=== PATIENT | male | born 1935 | race Caucasian/White ===

== ENCOUNTER 2016-12-31 10:50 | Emergency (ER) | payer MEDICARE ==
[2016-12-31 11:22] VITALS: BP 164/84
--- NOTE | 2016-12-31 12:01 | EDM.PDOC ---
ED HPI GENERAL MEDICAL PROBLEM - General Chief Complaint: Bite:Animal, Insect Stated Complaint: THINKS HAS [place] DISEASE Time Seen by Provider: 12/31/16 11:50 Source of Information: Reports: Patient History Limitations: Reports: No Limitations - History of Present Illness INITIAL COMMENTS - FREE TEXT/NARRATIVE: This 81 yo male patient reports to the ED with a tick bite to his right posterior thigh. The patient reports he has noticed increased redness to the area over the past 5 days, but denies any neurological symptoms at this time. The patient does not see a primary care provider and is not interested in seeing another provider. Onset: Gradual Onset Date: 12/26/16 Duration: Constant, Improving Quality: Reports: Dull Severity: Mild Improves with: Reports: None Worsens with: Reports: None Associated Symptoms: Reports: No Other Symptoms - Related Data Allergies Allergy/AdvReac Type Severity Reaction Status Date / Time No Known Allergies Allergy Verified 12/31/16 11:00 Home Meds: Home Meds . [No Known Home Meds] 12/31/16 [History] Past Medical History HEENT History: Reports: Hard of Hearing Gastrointestinal History: Reports: Hepatitis - Past Surgical History HEENT Surgical History: Reports: Other (See Below) Other HEENT Surgeries/Procedures: polyp removed from nose Social & Family History - Tobacco Use Smoking Status *Q: Never Smoker Second Hand Smoke Exposure: Yes - Caffeine Use Caffeine Use: Reports: Coffee - Recreational Drug Use Recreational Drug Use: No ED ROS GENERAL - Review of Systems Review Of Systems: ROS reveals no pertinent complaints other than HPI. ED EXAM, ANIMAL BITE - Physical Exam Exam: See Below Exam Limited By: No Limitations General Appearance: Alert, WD/WN, No Apparent Distress Eye Exam: Bilateral Eye: EOMI, Normal Inspection, PERRL Ears: Normal External Exam, Normal Canal, Hearing Grossly Normal, Normal TMs Nose: Normal Inspection, Normal Mucosa, No Blood Throat/Mouth: Normal Inspection, Normal Lips, Normal Teeth, Normal Gums, Normal Oropharynx, Normal Voice, No Airway Compromise Head: Atraumatic, Normocephalic Neck: Normal Inspection, Supple, Non-Tender, Full Range of Motion Respiratory/Chest: No Respiratory Distress, Lungs Clear, Normal Breath Sounds, No Accessory Muscle Use, Chest Non-Tender Cardiovascular: Normal Peripheral Pulses, Regular Rate, Rhythm, No Edema, No Gallop, No JVD, No Murmur, No Rub GI/Abdominal: Normal Bowel Sounds, Soft, Non-Tender, No Organomegaly, No Distention, No Abnormal Bruit, No Mass (Male) Exam: Deferred Rectal (Males) Exam: Deferred Back Exam: Normal Inspection, Full Range of Motion, NT Extremities: Normal Range of Motion, Non-Tender, No Pedal Edema, Normal Capillary Refill Neurological: Alert, Oriented, CN II-XII Intact, Normal Cognition, Normal Gait, Normal Reflexes, No Motor/Sensory Deficits Psychiatric: Normal Affect, Normal Mood Skin Exam: Other (the patient has an erythematous area on the posterior right lower thigh with no palpable fluctuance. ) Lymphatic: No Adenopathy Course - Vital Signs Last Recorded V/S: Last Vital Signs Temp 36.6 C 12/31/16 11:17 Pulse 82 12/31/16 11:17 Resp 18 12/31/16 11:17 BP 164/84 H 12/31/16 11:22 Pulse Ox 98 12/31/16 11:17 - Re-Assessments/Exams Free Text/Narrative Re-Assessment/Exam: 12/31/16 12:02 The patient was advised of the examination and a recommendation for the patient to have lab work (CBC and Lyme Disease), but the patient refused blood work and just wanted the antibiotic for Lyme Disease. Departure - Departure Time of Disposition: 11:58 Disposition: Home, Self-Care 01 Condition: Fair Clinical Impression: Tick bite of right thigh Qualifiers: Encounter type: initial encounter Qualified Code(s): S70.361A - Insect bite ( nonvenomous), right thigh, initial encounter - Discharge Information Instructions: Insect Bite, [id number] Forms: ED Department Discharge Care Plan Goals: The patient was advised of the examination results during the visit. The patient was given a script for Doxycycline (100 mg) #28 to take 1 by mouth 2 times per day for 14 days. The patient was encouraged to follow-up with a primary care facility for continued evaluation and further management. If the patient has any additional symptoms or concerns, the patient should visit his primary care facility or return to the emergency department.
== END 2016-12-31 12:05 | disposition home or self-care (01) ==
LOC: DL.ED 10:50
DX: S70.361A Insect bite (nonvenomous), right thigh, initial encounter (principal); W57.XXXA Bitten or stung by nonvenomous insect and other nonvenomous arthropods, initial encounter
CPT/HCPCS: 99282; 99283